=== PATIENT | female | born 1985 | race Caucasian/White ===

== ENCOUNTER 2016-12-12 10:46 | Emergency (ER) | payer OTHER ==
[~2016-12-12] VITALS: Ht 162.6 cm; Wt 104.5 kg
[~2016-12-12 10:46] MED LIST: MULT-56 PO; OMEP40CA36 PO; RANI150T11 PO
[2016-12-12 10:50] VITALS: BP 138/88; PULSE 95; RESP 16; O2SAT 100
--- NOTE | 2016-12-12 11:05 | ED.REPORT ---
HPI-Abd Pain F Under 40 Date of Service Dec 12, 2016 ED Provider: Thomas Lyons MD Nicci is a 31-year-old female with history of tubal ligation 4.5 years ago presents to the ED with left-sided pelvic pain dating to her back and pelvis. The pain is described as a cramping like sensation. Cramping would come and go but within the last 2 days the cramping has been constant. Pain is worse with sitting and better with standing. He has tried heat packs and Tylenol for relief. She notes that she has been passing blood clots and mucus. Patient notes that her periods for the last 2 months have been abnormal. Last suspected menses was on 11/28 which was very light and only lasted 2 days. She is currently not bleeding. Two urine test done at her physician's office this morning was positive. Associated symptoms of dizziness and the feeling of wanting to "pass out," headache. Denies any fevers or chills, nausea or vomiting, dysuria, frequency, urgency. She was diagnosed with BV recently and has been on a vaginal suppository since . Nursing Notes Stated Complaint: POSS /TUBES TIED Chief Complaint: Female Abdominal Pain Allergies: Coded Allergies: cefazolin (Verified Allergy, Intermediate, RASH, 07/13/14) PER H&P Iodinated Contrast- Oral and IV Dye (Verified Allergy, Mild, Rash,Itching, , 07/13/14) Had itching on face and torso after CT with contrast. TAPE (Verified Allergy, Mild, Rash, 12/12/16) Scheduled Omeprazole (Omeprazole) 40 Mg Capsule.dr 40 MG PO DAILY Ranitidine HCl (Ranitidine) 150 Mg Tablet 150 MG PO DAILY Miscellaneous Medications Multivitamin (Daily Vitamin) 1 Each Tablet 1 EACH PO General Time Seen by MD: 10:59 Chief Complaint Pelvic pain Left-sided pelvic pain. Hx Obtained From: Patient Arrived By: Walk-in Sudden in Onset?: No Symptom Duration: 2 days Location: : Pelvis Quality: Cramping, Dull Radiation: : Back: Pelvis Associated with: Reports: Back pain Additional Notes: Dizziness/lightheadedness Headache Pertinent Negative: Pt denies other symptoms Exacerbated by: Upright (standing) Risk Factors Ectopic Risk Stratification Tubal Ligation Past Medical History Past Medical History GERD BV Past Surgical History Reports: , Cholecystectomy, Tonsillectomy Smoking History Current Every Day Smoker Social History Alcohol Use: "Social" Drug Use: Denies drug use Other Social History: Good social support, Ambulatory Status Independent Review of Systems Basic Review of Systems Eyes: Vision NL, No discharge ENT: Hearing NL, No pain, No nasal congestion, No pharyngeal pain Endocrine: No cold intolerance, No heat intolerance, No weight gain, No weight loss Skin: No bruising, No rash, No itch Neurologic: NL mental status, No weakness, No numbness Psychiatric: Normal thought content Constitutional: Denies: Chills, Fever Cardiovascular: Denies: Chest pain, Palpitations GI: Reports: Diarrhea, Denies: Constipation, Nausea, Vomiting Female: Reports: Pelvic pain, Vaginal bleeding - abnl, Denies: Dysuria Musculoskeletal: Reports: Back pain Complete sys rev & neg: except as marked. Physical Exam Initial Vital Signs Vital Signs (First) Date Time Temp Pulse Resp B/P Pulse Ox O2 Delivery O2 Flow Rate FiO2 12/12/16 10:50 36.8 95 16 138/88 100 Room Air Head / Eyes: Atraumatic, Normocephalic, PERRL ENT: Mucous membranes moist, Conjunctiva normal, No scleral icterus Neck: Supple, Non-tender, Full range of motion Lymphatic: No lymphadenopathy Extremities: Vascular intact, Neuro intact, No swelling, No tenderness Skin: Warm, Dry, No cyanosis Neurologic: Alert, Oriented, Nonfocal Psychiatric: Mood/affect normal, Behavior normal, Normal thought content Respiratory / Chest: Breath sounds NL, Breath sounds = bilat, No respiratory distress, No rales, No rhonchi, No wheezing Cardiovascular: Heart rate NL, Regular rhythm, Heart sounds NL, Peripheral circulation NL Abdomen: Soft, McBurney's non-tender, No rebound, BS normoactive, No distention , No hernia, No palpable mass Tenderness/Guarding/Rebound: Positive: Tender LLQ... (tender left lower quadrant, adnexal tenderness. Voluntary guarding. No CVA tenderness) Interpretation & Diagnostics Lab Results Interpretation Result Diagram: 12/12/16 1107 12/12/16 1107 Test 12/12/16 11:07 12/12/16 11:41 White Blood Count 10.1th/mm3 (3.8-10.1) Red Blood Count 5.19mil/mm3 (3.90-5.20) Hemoglobin 14.6g/dL (12.0-15.6) Hematocrit 43.2% (35.0-46.0) Mean Corpuscular Volume 83.2fL (81-100) Mean Corpuscular Hemoglobin 28.1pg (27.0-35.0) Mean Corpuscular Hemoglobin Concent 33.8% (32.0-37.0) Red Cell Distribution Width 14.9% (12.3-15.4) Platelet Count 228bil/L (150-400) Sodium Level 139mEq/L (134-144) Potassium Level 4.1mEq/L (3.5-5.2) Chloride Level 102mEq/L (97-108) Carbon Dioxide Level 23mmol/L (18-29) Blood Urea Nitrogen 8mg/dL (6-20) Creatinine 0.79mg/dL (0.57-1.00) Estimat Glomerular Filtration Rate 122mL/min (>59) Glucose Level 115mg/dL (60-99) Calcium Level 9.5mg/dL (8.5-10.1) Total Bilirubin 0.3mg/dL (0.0-1.2) Aspartate Amino Transf (AST/SGOT) 21U/L (0-50) Alanine Aminotransferase (ALT/SGPT) 21U/L (0-32) Alkaline Phosphatase 69U/L (25-150) Total Protein 7.8g/dL (6.4-8.4) Albumin 4.4g/dL (3.4-5.0) HCG Beta Subunit < 0.500mIU/mL Hold Urine Received (Received) Re-Eval/Medical Decision Med Decision/Clinical Course Nicci is a 31-year-old female with a history of tubal ligation, presents with left lower quadrant pain radiating down to her pelvis and her back. Urine test was negative. Serum beta hCG was also negative. Labs show that she has no signs of infection. Patient did have some hematuria. Patient denied CT scan to rule out kidney stones. She opted to follow-up with her primary care provider. Discharge & Departure Primary Impression: Abdominal pain Abdominal location: left lower quadrant Qualified Code: R10.32 - Left lower quadrant pain Additional Impression: Hematuria Disposition: Home Discharge Condition All VS Reviewed: Yes Condition: Stable Patient Instructions: Acute Abdominal Pain (ED) Additional Instructions: Thorough workup of your abdominal pain was done today. We have determined that you're not and you do not have an ectopic . Your blood tests also shows that you do not have signs of an infection. You do have some blood in your urine is possible that you have a kidney stone. These follow-up with your primary care provider for further management. Referrals: Iker Helton MD (PCP) EDSupervising Provider for APC: Thomas Lyons MD Attending Statment I discussed patient with resident Dr Loyda Walters. I evaluated the patient independently and agree with plan as above. In brief 31-year-old female who is status post tubal ligation presenting sent over by primary care clinic for positive urine 2. Urine is negative here. Her blood hCG is negative as well. She is not . She complained of mild left lower quadrant pain. She has very slight leukocytosis. Urine is not suggestive of infection. She has mild hematuria. She declined any CT scan to confirm or rule out kidney stones. Pain is minimal and controlled. She requests to go home without any further evaluation. Follow-up primary doctor. Return precautions given. Thomas Lyons MD Dec 12, 2016 11:05 Loyda Walters DO Dec 12, 2016 12:05
[2016-12-12 11:29] LABS: Mean Corpuscular Hemoglobin 28.1 pg (27.0-35.0); Mean Corpuscular Volume 83.2 fL (81-100)
[2016-12-12 13:09] VITALS: BP 113/80; PULSE 80; RESP 16; O2SAT 96
[2016-12-12 13:13] VITALS: BP 113/80; PULSE 80; RESP 16; O2SAT 96
--- NOTE | 2016-12-12 17:51 | DRSVH ---
PROCEDURE: US PELVIC SONOGRAM INDICATIONS: CRAMPING/HX OF TUBAL LIGATION, TECHNIQUE: Real-time scanning was performed of the pelvic organs, with image documentation. Additional endovagi nal scanning was necessary due to incomplete visualization of the adnexal and endometrial structures by transabdominal scanning. COMPARISON: [facility] [facility], US, US PELVIC+TRANSVAG, 01/25/2016, 13:09. FINDINGS: (orthogonal measurements) Uterus size: 8.60 cm, 4.17 cm, 6.18 cm Endometrium thickness: 9 mm Right ovary size: 3.72 cm, 1.29 cm, 2.28 cm Left ovary size: 3.14 cm, 1.31 cm, 2.79 cm Transabdominal scanning: Limited scanning through the kidneys shows no hydronephrosis. No pathologi c free abdominal or pelvic fluid. Endovaginal scanning: Uterus: Uterus is normal in size and appearance. Endometrium is within normal physiologic limits. Ovaries: Within normal physiologic limits. IMPRESSION: Limited exam demonstrating grossly normal appearance of the uterus and ovaries. Dictated by: Vignesh LAURA Interpreted: Monik Marks MD on 12/12/2016 at 13:02 Approved by: Fredis Marin M.D. on 12/12/2016 at 17:49
== END 2016-12-12 13:14 | disposition home or self-care (01) ==
LOC: SED 10:46
DX: R10.32 Left lower quadrant pain (principal); R31.9 Hematuria, unspecified; R42 Dizziness and giddiness; R51 Headache; K21.9 Gastro-esophageal reflux disease without esophagitis; F17.200 Nicotine dependence, unspecified, uncomplicated; Z98.51 Tubal ligation status; Z90.49 Acquired absence of other specified parts of digestive tract; Z90.89 Acquired absence of other organs; Z88.1 Allergy status to other antibiotic agents; Z91.041 Radiographic dye allergy status; Z91.048 Other nonmedicinal substance allergy status